=== PATIENT | female | born 2000 | race Caucasian/White ===

== ENCOUNTER 2025-08-14 08:19 | Emergency (ER) | payer OTHER, SELFPAY ==
--- NOTE | ~2025-08-14 | XR_ITS ---
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 Findings: No acute fracture or malalignment. Small joint effusion. Soft tissues unremarkable. Impression: No acute fracture or malalignment. Reviewed, dictated and finalized at location P. ENGER FLOORPERSON Impression: No acute fracture or malalignment.
[2025-08-14 08:16] VITALS: BP 135/99; PULSE 91; RESP 16; TEMP 36.5; O2SAT 100
--- NOTE | 2025-08-14 08:43 | ED.GENADULT ---
HPI - General Adult General Chief complaint: Extremity Injury, Lower Stated complaint: knee pain Time Seen by Provider: 08/14/25 08:26 History of Present Illness HPI narrative: 24-year-old female presented to the emergency department for evaluation for right knee pain. Patient reports she was at work when she twisted and felt that her patella shifted off laterally. EMS was called. When EMS placed the patient on to the gurney she strain her leg and the patella spontaneously relocated. Patient reports she does feel improved but does still have some right knee pain. Patient denies any other pain or injury. Related Data Allergies Allergy/AdvReac Type Severity Reaction Status Date / Time No Known Allergies Allergy Verified 08/14/25 08:25 Review of Systems Review of Systems: All systems reviewed & are unremarkable except as noted in HPI and below Exam Narrative: APPEARANCE: Well appearing, no pain, no distress, well-nourished. HEAD: normocephalic, atraumatic. EYES: PERRLA/EOMI, conjunctivae clear. NOSE: Normal no drainage EARS:TMS clear with good light reflex. THROAT: Pharynx clear, no exudate. NECK: Supple. No adenopathy, no masses. RESPIRATORY: Airway patent, respirations nonlabored. Clear to auscultation bilaterally, no rales, rhonchi, wheezing. CARDIOVASCULAR: Regular rate and rhythm without murmurs rubs or gallops. ABDOMINAL: Soft, nontender, nondistended, normal bowel sounds MUSCULOSKELETAL: Patella is no longer dislocated, no deformity neurovascularly intact NEURO: Alert. Cranial nerves II through XII intact. Good gait. Good coordination SKIN: Warm, dry. Normal Color Course Vital Signs Vital signs: Vital Signs Temperature 97.7 F 08/14/25 08:16 Pulse Rate 91 08/14/25 08:16 Respiratory Rate 16 08/14/25 08:16 Blood Pressure 135/99 H 08/14/25 08:16 Pulse Oximetry 100 08/14/25 08:16 Oxygen Delivery Room Air 08/14/25 08:16 Temperature 97.7 F 08/14/25 08:16 Pulse Rate 91 08/14/25 08:16 Respiratory Rate 16 08/14/25 08:16 Blood Pressure 135/99 H 08/14/25 08:16 Pulse Oximetry 100 08/14/25 08:16 Oxygen Delivery Room Air 08/14/25 08:16 Medical Decision Making MDM Narrative Medical decision making narrative: 24-year-old female presents emergency department for evaluation for spontaneous reduced patellar dislocation. X-ray showed no acute current fracture or dislocation. Patient was placed in a knee immobilizer provided crutches for limited weight-bearing. Patient was encouraged of close follow-up with her primary care physician and with Orthopedics. Differential Diagnosis Differential Diagnosis: Knee dislocation, spontaneous reduction, patellar dislocation Vital Signs Vital Signs: Vital Signs Temperature 97.7 F 08/14/25 08:16 Pulse Rate 91 08/14/25 08:16 Respiratory Rate 16 08/14/25 08:16 Blood Pressure 135/99 H 08/14/25 08:16 Pulse Oximetry 100 08/14/25 08:16 Oxygen Delivery Room Air 08/14/25 08:16 Temperature 97.7 F 08/14/25 08:16 Pulse Rate 91 08/14/25 08:16 Respiratory Rate 16 08/14/25 08:16 Blood Pressure 135/99 H 08/14/25 08:16 Pulse Oximetry 100 08/14/25 08:16 Oxygen Delivery Room Air 08/14/25 08:16 Imaging Data Radiologist's impression: Impressions Knee X-Ray 08/14/25 09:10 Impression: No acute fracture or malalignment. Discharge Plan Discharge Clinical Impression: Closed dislocation of right patella Patient Disposition: Home Condition: Stable Instructions: Antibiotic Form, Crutch Instructions (ED), Patellar Dislocation (ED), Knee Immobilizer (ED) Additional Instructions: knee immobilizer as directed until cleared by Orthopedics. Crutches for limited weight-bearing. Tylenol and ibuprofen for pain control. Have close follow-up with Orthopedics and with your primary care physician. If you have any worsening symptoms please call or return to the emergency department. Patient Language: Turkmen Follow-up/Referrals: Diallo Delacruz MD [Physician, Orthopedics] Stand Alone Forms: Work/School Release IP
--- OUTSIDE RECORDS SUMMARY | 2025-08-14 09:58 | XMS_ITS | Clinical Summary ---
Author Organization [facility] Address [address] [place] [address] Care Team Providers Care Gypsum Calciner Name Role Phone Ravi Bains MD Primary Care Provide r Source Comments [facility],non-owned Affiliates and Associated Physician Practices is amultiple site organization consisting of ambulatory clinics and hospital sitesin [place], [place], [place] and [place]. This disclosure is being madepursuant to the Care Everywhere program and may not contain all information available regarding this patient. 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 Gender Identity Not on file Sexual Orientation Not on file Plan of Treatment Health Maintenance Due Date Last Done Comments HIV SCREENING 2013 HPV VACCINE (1 - 3-dose series) 2013 HEPATITIS C SCREENING 09/25/2016 DTAP/TDAP/TD VACCINES (1 - Tdap) 2017 HEPATITIS B VACCINE (1 of 3 - 19+ 3-dose series) 2017 DEPRESSION SCREENING 10/05/2024 COVID-19 VACCINE (1 - 2023-2 5 season) 2025 INFLUENZA VACCINE (#1) 2025 ZOSTER VACCINE (1 of 2) 2048 HIB VACCINE Aged Out No longer eligi ble based on patient's age to complete this topic MENINGOCOCCAL (Group B) VACC INE SHARED DECISION-MAKING Aged Out No longer eligibl e based on patient's age to complete this topic MENINGOCOCCAL GROUPS A/C/Y/W VACCINE Aged Out No longer eligible b ased on patient's age to complete this topic PNEUMOCOCCAL VACCINE Aged Out No long er eligible based on patient's age to complete this topic Insurance MEDICAID - [place] Care Teams Gypsum Calciner Relationship Specialty Start Date End Date Ravi Bains MD PCP - General 08/16/12
--- OUTSIDE RECORDS SUMMARY | 2025-08-14 09:58 | XMS_ITS | Clinical Summary ---
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 Gender Identity Not on file Sexual Orientation Not on file Plan of Treatment Health Maintenance Due Date Last Done Comments Hepatitis C Virus (HCV) Screening 1998 Human Papillomavirus (HPV) Immunization (1 - 3-dose series) 2013 Influenza Immunization (#1) 2025 SARS-COV-2 Immunization (3 - 2024- season) 2025 03/28/2021, 03/05/2021 Respiratory Syncytial Virus (RSV) Immunization (Adult) (1 - 1-dose 75+ series) 2073 Hepatitis B Immunization Completed 999, 1998, 1998 DTaP/Tdap/Td Immunization Discontinued 2012, 05/06/2004, 10/14/1999, Additional history exists TdaP Immunization Completed 04/27/2013 Meningococcal Immunization (ACWY) Completed 04/28/2016, 04/27/2013 Pneumococcal Immunization Combined Aged Out No longer eligible based on patient's age to complete this topic Rotavirus Immunization Aged Out No lo nger eligible based on patient's age to complete this topic
== END 2025-08-14 09:33 | disposition home or self-care (01) ==
LOC: ANHED 09:24
PROVIDERS: Emergency Provider Emergency Medicine
DX: S83.004A Unspecified dislocation of right patella, initial encounter (principal); W01.0XXA Fall on same level from slipping, tripping and stumbling without subsequent striking against object, initial encounter
CPT/HCPCS: 73562; 99283